=== PATIENT | male | born 1995 | race African-American/Black ===

== ENCOUNTER 2016-09-30 12:25 | Emergency (ER) | payer OTHER ==
[2016-09-30 12:30] VITALS: TEMP 98; BMI 21.4
--- NOTE | 2016-09-30 12:43 | PDOC ---
*Physical Exam - Vital Signs Last Vital Signs Temp Pulse Resp BP Pulse Ox 98.0 F 68 18 140/96 100 09/30/16 12:28 09/30/16 12:28 09/30/16 12:28 09/30/16 12:28 09/30/16 12:28 - Physical Exam Comments: 09/30/16 12:43 Pt seen by the Advanced Practice Provider under my direct supervision Pt interviewed and examined Ancillary studies reviewed I agree with plan as outlined by the Advanced Practice Provider ED Treatment Course - LABORATORY CBC & Chemistry Diagram: 09/30/16 14:10 09/30/16 14:10 *DC/Admit/Observation/Transfer Diagnosis at time of Disposition: Seizure - Discharge Dispostion Disposition: HOME Condition at time of disposition: Good - Referrals Referrals: Soco Reese MD [Staff Physician] - - Patient Instructions Printed Discharge Instructions: DI for Seizure Disorder -- Adult Additional Instructions: Please follow up with referred neurologist and avoid drug use. Eat well-balanced meals. Decrease stress level
[2016-09-30] MEDS ORDERED: SODIUM CHLORIDE 1,000 ML IV STA (13:11)
--- NOTE | 2016-09-30 13:26 | PDOC ---
History of Present Illness - General Chief Complaint: Seizure Stated Complaint: R/O Seizure Time Seen by Provider: 09/30/16 12:37 History Source: Patient, Other (friend) Exam Limitations: No Limitations - History of Present Illness Initial Comments: 09/30/16 13:00 20-year-old male presents the ED with status post witnessed generalized tremors and foaming at the mouth as per female friend. Patient states was feeling anxious at 17 soda vomiting followed a few minutes thereafter by generalized muscle fatigue followed by the symptoms mentioned above. Patient states has had what he believes a seizure in the past but states has never seen a neurologist nor has he had any imaging of his head. Patient states no recent head injury, recent change in weight, excessive drug use, alcohol use, recent illness, or fever. Timing/Duration: resolved prior to arrival Severity: moderate Associated Symptoms: reports: nausea/vomiting, seizure Past History - Past Medical History Allergies/Adverse Reactions: Allergies Allergy/AdvReac Type Severity Reaction Status Date / Time No Known Allergies Allergy Verified 09/30/16 12:28 Home Medications: Ambulatory Orders NK [No Known Home Medication] 09/30/16 Other medical history: possible seizure - Immunization History Immunization Up to Date: Yes - Psycho/Social/Smoking Cessation Hx Anxiety: No Suicidal Ideation: No Smoking History: Never smoked Have you smoked in the past 12 months: No Number of Cigarettes Smoked Daily: 2 Cigars Per Day: 0 Information on smoking cessation initiated: No Hx Alcohol Use: No Drug/Substance Use Hx: Yes (occ marijuana) Substance Use Type: None, Marijuana Patient Lives Alone: No Lives with/in: parents Review of Systems - Review of Systems Able to Perform ROS?: Yes Constitutional: No: Symptoms Reported HEENTM: No: Symptoms Reported Respiratory: No: Symptoms reported Cardiac (ROS): No: Symptoms Reported ABD/GI: Yes: Nausea, Vomiting Musculoskeletal: Yes: Muscle Pain (generalized) Integumentary: No: Symptoms Reported Neurological: Yes: Seizure Endocrine: No: Symptoms Reported *Physical Exam - Vital Signs Last Vital Signs Temp Pulse Resp BP Pulse Ox 98.0 F 68 18 140/96 100 09/30/16 12:28 09/30/16 12:28 09/30/16 12:28 09/30/16 12:28 09/30/16 12:28 - Physical Exam General Appearance: Yes: Nourished, Appropriately Dressed. No: Apparent Distress HEENT: positive: EOMI, TAMIKO (3 mm bilateral and equal). negative: Pharynx Normal (dry), Pale Conjunctivae Neck: positive: Supple Respiratory/Chest: positive: Lungs Clear, Normal Breath Sounds. negative: Respiratory Distress, Accessory Muscle Use Cardiovascular: positive: Regular Rhythm, Regular Rate. negative: Murmur Gastrointestinal/Abdominal: positive: Soft. negative: Tenderness Extremity: positive: Normal Capillary Refill. negative: Pedal Edema Integumentary: positive: Normal Color, Warm, Moist Neurologic: positive: Normal Mood/Affect, Motor Strength 5/5 (ambulatory). negative: Sensory Deficit Deep Tendon Reflexes: Knee (L): 2+, Knee (R): 2+ ED Treatment Course - LABORATORY CBC & Chemistry Diagram: 09/30/16 14:10 09/30/16 14:10 - RADIOLOGY Radiology Studies Ordered: Category Date Time Status HEAD CT WITHOUT CONTRAST [CT] Stat CT Scan 09/30/16 13:11 Ordered Medical Decision Making - Medical Decision Making 09/30/16 13:03 Patient with witnessed foaming at the mouth and generalized tremors it lasted approximately 1 minute but resolved by the time EMS arrived presents with no complaints . Patient's states had a similar episode in the past that was related to stress but it was over 10 years ago. Patient ordered for labs, urine and urine toxicology, head CT EKG, and BGM 09/30/16 15:28 Laboratory Tests 09/30/16 09/30/16 09/30/16 14:10 14:10 14:10 WBC 4.5 D Hgb 12.9 D Hct 40.0 Plt Count 128 L D Neutrophils % 61.7 Sodium 143 Potassium 4.3 Chloride 110 H Carbon Dioxide 28 Anion Gap 5 L BUN 15 D Creatinine 1.0 Creat Clearance w eGFR > 60 Random Glucose 92 Calcium 8.3 L Magnesium 2.1 AST 22 D ALT 32 Albumin 3.9 Urine Ketones Urine Nitrite Ur Leukocyte Esterase Opiates Screen Negative Barbiturate Screen Negative Phencyclidine Screen Negative Ur Amphetamines Screen Negative MDMA (Ecstasy) Screen Negative Benzodiazepines Screen Negative Cocaine Screen Negative U Marijuana (THC) Screen Positive 09/30/16 14:10 WBC Hgb Hct Plt Count Neutrophils % Sodium Potassium Chloride Carbon Dioxide Anion Gap BUN Creatinine Creat Clearance w eGFR Random Glucose Calcium Magnesium AST ALT Albumin Urine Ketones Negative Urine Nitrite Negative Ur Leukocyte Esterase Negative Opiates Screen Barbiturate Screen Phencyclidine Screen Ur Amphetamines Screen MDMA (Ecstasy) Screen Benzodiazepines Screen Cocaine Screen U Marijuana (THC) Screen 09/30/16 15:[address] shows no acute evidence of intracranial pathology including hemorrhage edema, midline shift mass effect or skull fracture. Patient will be discharged home to follow-up with neurology 09/30/16 15:29 *DC/Admit/Observation/Transfer Diagnosis at time of Disposition: Seizure - Discharge Dispostion Disposition: HOME Condition at time of disposition: Good - Referrals Referrals: Soco Reese MD [Staff Physician] - - Patient Instructions Printed Discharge Instructions: DI for Seizure Disorder -- Adult Additional Instructions: Please follow up with referred neurologist and avoid drug use. Eat well-balanced meals. Decrease stress level
[2016-09-30 14:23] LABS: BASOPHIL 0.6 % (0-2.0); EOSINOPHIL 1.9 % (0-4.5); MCH 27.6 pg (25.7-33.7); MCHC 32.2 g/dl (32.0-35.9); MEAN CELL VOLUME 85.9 fl (80-96); MEAN PLT VOLUME 9.6 fl (7.5-11.1); NEUTROPHILS 61.7 % (42.8-82.8); PLATELET COUNT 128 K/MM3 (134-434); RDW 15.5 % (11.9-15.9); WHITE BLOOD COUNT 4.5 K/mm3 (4.0-10.0)
[2016-09-30 14:25] LABS: URINE APPEARANCE CLEAR; URINE BILIRUBIN NEGATIVE (NEGATIVE); URINE BLOOD NEGATIVE (NEGATIVE); URINE COLOR STRAW; URINE GLUCOSE (UA) NEGATIVE (NEGATIVE); URINE KETONE NEGATIVE (NEGATIVE); URINE LEUK ESTERASE NEGATIVE (NEGATIVE); URINE NITRITE NEGATIVE (NEGATIVE); URINE PROTEIN NEGATIVE (NEGATIVE); URINE UROBILINOGEN NEGATIVE E.U./dl (0.2-1.0)
[2016-09-30 14:50] LABS: URINE MARIJUANA THC POSITIVE ng/ml (CUTOFF=50)
[2016-09-30 14:54] LABS: ALBUMIN 3.9 g/dl (3.4-5.0); ANION GAP 5 (8-16); BILIRUBIN,TOTAL 0.3 mg/dL (0.2-1.0); CALCIUM 8.3 mg/dL (8.5-10.1); CO2 28 mmol/L (21-32); COCKROFT - GAULT 107.79; GLUCOSE,RANDOM 92 mg/dL (74-106); MAGNESIUM 2.1 mg/dL (1.8-2.4); SGOT/AST 22 U/L (15-37); SGPT/ALT 32 U/L (12-78); TOT PROT 6.8 g/dl (6.4-8.2)
[2016-09-30 14:55] LABS: ALK PHOS 63 U/L (45-117)
[2016-09-30 15:43] VITALS: BP 136/79; PULSE 80
--- NOTE | 2016-09-30 16:20 | EKG ---
Test Reason : Blood Pressure : / mmHG Vent. Rate : 061 BPM Atrial Rate : 061 BPM P-R Int : 140 ms QRS Dur : 098 ms QT Int : 402 ms P-R-T Axes : 021 071 035 degrees QTc Int : 404 ms POOR DATA QUALITY, INTERPRETATION MAY BE ADVERSELY AFFECTED NORMAL SINUS RHYTHM WITH SINUS ARRHYTHMIA EARLY REPOLARIZATION NORMAL ECG WHEN COMPARED WITH ECG OF 12-MAY-2016 01:07, NO SIGNIFICANT CHANGE WAS FOUND Confirmed by KARLO ASCENCIO MD ([id number]) on 09/30/2016 4:20:35 PM Referred By: Confirmed By:KARLO ASCENCIO MD
== END 2016-09-30 15:50 | disposition home or self-care (01) ==
LOC: JER 12:25
PROC: 3E0337Z Introduction of Electrolytic and Water Balance Substance into Peripheral Vein, Percutaneous Approach (ICD-10-PCS; principal; 2016-09-30)
DX: G40.89 Other seizures (principal)
CPT/HCPCS: 36415; 70450-TC; 80053; 80307; 81003; 83735; 85025; 93005; 93010; 99282-25

== ENCOUNTER 2017-04-06 07:22 | Emergency (ER) | payer OTHER ==
[2017-04-06 07:29] VITALS: BMI 20.7
--- NOTE | 2017-04-06 08:06 | PDOC ---
History of Present Illness <Sarah Daniels - Last Filed: 04/06/17 08:01> - General History Source: Patient Exam Limitations: No Limitations - History of Present Illness Initial Comments: 04/06/17 08:24 21 year old male, with no significant past medical history, who presents to the emergency room with 3 days of nasal congestion and 1 day of left ear fullness and decreased hearing. He states that he noticed the decreased hearing in his left ear this morning when he woke up. He tried to pop his ear by moving his jaw around, and reports that it did pop but he still has decreased hearing. He also used a qtip and removed some wax in his left ear. He denies ear pain and tinnitus bilaterally. Denies ear discharge. Denies fever, chills, cough, sore throat. Denies headache. Denies chest pain, SOB. Allergies: NKDA <Carin Cummings - Last Filed: 04/06/17 08:27> - General Chief Complaint: Ear Problem Stated Complaint: HEARING PROBLEM Time Seen by Provider: 04/06/17 07:40 Past History - Immunization History Immunization Up to Date: Yes - Suicide/Smoking/Psychosocial Hx Smoking History: Current some day smoker Have you smoked in the past 12 months: No Number of Cigarettes Smoked Daily: 3 Cigars Per Day: 0 Information on smoking cessation initiated: No Hx Alcohol Use: No Drug/Substance Use Hx: No Substance Use Type: None, Marijuana <Sarah Daniels - Last Filed: 04/06/17 08:01> <Carin Cummings - Last Filed: 04/06/17 08:27> - Past Medical History Allergies/Adverse Reactions: Allergies Allergy/AdvReac Type Severity Reaction Status Date / Time No Known Allergies Allergy Verified 04/06/17 07:30 Home Medications: Ambulatory Orders Carbamide Peroxide 6.5% [Debrox -] 5 drop BID #1 bottle 04/06/17 Review of Systems - Review of Systems Able to Perform ROS?: Yes Comments:: 04/06/17 08:24 GENERAL/CONSTITUTIONAL: No fever or chills. No weakness. HEAD, EYES, EARS, NOSE AND THROAT: +nasal congestion. +left ear fullness and decreased hearing. No change in vision. No ear pain or discharge. No sore throat. GASTROINTESTINAL: No nausea, vomiting, diarrhea or constipation. GENITOURINARY: No dysuria, frequency, or change in urination. CARDIOVASCULAR: No chest pain or shortness of breath. RESPIRATORY: No cough, wheezing, or hemoptysis. MUSCULOSKELETAL: No joint or muscle swelling or pain. No neck or back pain. SKIN: No rash NEUROLOGIC: No headache, vertigo, loss of consciousness, or change in strength/ sensation. ENDOCRINE: No increased thirst. No abnormal weight change. HEMATOLOGIC/LYMPHATIC: No anemia, easy bleeding, or history of blood clots. ALLERGIC/IMMUNOLOGIC: No hives or skin allergy. <Carin Cummings - Last Filed: 04/06/17 08:27> *Physical Exam - Vital Signs Last Vital Signs Temp Pulse Resp BP Pulse Ox 97.4 F L 72 18 140/89 100 04/06/17 07:26 04/06/17 07:26 04/06/17 07:26 04/06/17 07:26 04/06/17 07:26 <Sarah Daniels - Last Filed: 04/06/17 08:01> - Vital Signs Last Vital Signs Temp Pulse Resp BP Pulse Ox 98 F 71 18 125/71 99 04/06/17 08:22 04/06/17 08:22 04/06/17 08:22 04/06/17 08:22 04/06/17 08:22 - Physical Exam Comments: 04/06/17 08:25 Constitutional: Awake, alert, oriented. No acute distress. Head: Normocephalic. Atraumatic Eyes: PERRL. EOMI. Conjunctivae are not pale. ENT: Congestion in nose. No sinus tenderness. Cerumen in the left ear, not impacted but unable to visualize the ear drum. Cerumen in the right ear with visualization of the eardrum. No bulging. No erythema.No mastoid tenderness. Mucous membranes are moist and intact. Posterior pharynx without exudates or erythema. Uvula midline. Neck: Supple. Full ROM. No lymphadenopathy. Cardiovascular: Regular rate. Regular rhythm. S1, S2 regular. Distal pulses are 2+ and symmetric. Pulmonary/Chest: No evidence of respiratory distress. Clear to auscultation bilaterally No wheezing, rales or rhonchi. Skin: Skin is warm and dry. No petechiae. No purpura. Neurological: Alert and oriented to person, place, and time. Cranial nerves II -XII are grossly intact. Normal speech. Strength is grossly symmetric. No sensory deficits. Psychiatric: Good eye contact. Normal interaction, affect and behavior. <Carin Cummings - Last Filed: 04/06/17 08:27> Medical Decision Making - Medical Decision Making 04/06/17 08:01 a/p: 21yo male with L ear fullness and decreased hearing -recent viral URI and nasal congestion causing eustasian tube dysfunction -also with cerumen in the canal -will give debrox gtts and ENT follow up -discussed all reasons to return to the ED and need for follow up with PMD and ENT. <Sarah Daniels - Last Filed: 04/06/17 08:01> *DC/Admit/Observation/Transfer - Discharge Dispostion Admit: No - Attestations Physician Attestion: 04/06/17 08:09 I, Dr. Sarah Daniels DO, attest that this document has been prepared under my direction and personally reviewed by me in its entirety. I further attest, that it accurately reflects all work, treatment, procedures and medical decision -making performed by me. <Sarah Daniels - Last Filed: 04/06/17 08:01> - Attestations Scribe Attestion: 04/06/17 08:27 Documentation prepared by RADHA Gibbs, acting as medical concierge for Sarah Daniels DO. <Carin Cummings - Last Filed: 04/06/17 08:27> Diagnosis at time of Disposition: Excessive cerumen in left ear canal - Discharge Dispostion Disposition: HOME - Prescriptions Prescriptions: Carbamide Peroxide 6.5% [Debrox -] 5 drop BID #1 bottle - Referrals Referrals: Estuardo Hoang MD [Staff Physician] - Moi Dugan MD [Staff Physician] - - Patient Instructions Printed Discharge Instructions: DI for Cerumen Impaction Additional Instructions: Please use the debrox drops as prescribed. Please return to the Ed with any further concerns. Please follow up with the PMD in 2-3 days. Please also follow up with the ENT physician. - Post Discharge Activity Forms/Work/School Notes: Back to Work
[2017-04-06 08:22] VITALS: BP 125/71; PULSE 71; TEMP 98
== END 2017-04-06 08:22 | disposition home or self-care (01) ==
LOC: JER 07:22
DX: H61.22 Impacted cerumen, left ear (principal)
CPT/HCPCS: 99281-25

== ENCOUNTER 2017-07-11 06:02 | Emergency (ER) | payer SELFPAY ==
[2017-07-11 06:36] VITALS: BP 139/78; PULSE 64; TEMP 98.4; BMI 20.2
--- NOTE | 2017-07-11 07:15 | PDOC ---
History of Present Illness - General Chief Complaint: Palpitations Stated Complaint: STOMACH PAIN/CONSTIPATION Time Seen by Provider: 07/11/17 07:02 History Source: Patient - History of Present Illness Initial Comments: 07/11/17 07:10 Patient is a 21 y.o. male with no PMH who presents c/o 2 day h/o intermittent, roving abdominal pain with associated constipation and nausea. Patient's last BM was two days previous, he normally has 1-2 BM daily Patient does note a single episode of bright red blood when wiping after bowel movement. Patient denies any vomiting, fevers, chills as well as dysuria/hematuria. 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 ROS is positive for intermittent palpitations. NKDA Surgical: none Social: denies cigarettes, denies alcohol, bi-weekly marijuana use PMD: None - will refer to IM clinic Past History - Past Medical History Allergies/Adverse Reactions: Allergies Allergy/AdvReac Type Severity Reaction Status Date / Time No Known Allergies Allergy Verified 04/06/17 07:30 Home Medications: Ambulatory Orders NK [No Known Home Medication] 07/11/17 - Immunization History Immunization Up to Date: Yes - Suicide/Smoking/Psychosocial Hx Smoking History: Former smoker Have you smoked in the past 12 months: No Number of Cigarettes Smoked Daily: 3 If you are a former smoker, when did you quit?: 04/2017 Cigars Per Day: 0 Information on smoking cessation initiated: No Hx Alcohol Use: No Drug/Substance Use Hx: Yes (Marijuana) Substance Use Type: None, Marijuana Review of Systems - Review of Systems Constitutional: No: Chills, Fever HEENTM: No: Recent change in vision Respiratory: No: Cough, Shortness of Breath Cardiac (ROS): Yes: Chest Pain ABD/GI: Yes: Constipated. No: Diarrhea, Nausea, Vomiting : No: Burning, Dysuria *Physical Exam - Vital Signs Last Vital Signs Temp Pulse Resp BP Pulse Ox 98.4 F 64 18 139/78 100 07/11/17 06:33 07/11/17 06:33 07/11/17 06:33 07/11/17 06:33 07/11/17 06:33 - Physical Exam General Appearance: Yes: Nourished, Appropriately Dressed, Disheveled, Thin HEENT: positive: EOMI, TAMIKO Neck: positive: Trachea midline, Supple Respiratory/Chest: positive: Lungs Clear, Normal Breath Sounds Cardiovascular: positive: S1, S2, Systolic Murmur (Grade I systolic murmur best appreciated in R 2nd intercostal space). negative: Edema, JVD Gastrointestinal/Abdominal: positive: Normal Bowel Sounds, Soft. negative: Tender, Pulsatile Mass, Protuberent, Distended, Guarding, Hernia, Mass Rectal Exam: positive: heme negative stool. negative: hemorrhoids Musculoskeletal: negative: CVA Tenderness (R), CVA Tenderness (L) Extremity: positive: Normal Capillary Refill, Normal Inspection Integumentary: positive: Normal Color, Dry, Warm Neurologic: positive: senior managing director II-XII NML intact, Fully Oriented, Alert ED Treatment Course - LABORATORY CBC & Chemistry Diagram: 07/11/17 07:45 07/11/17 07:45 Medical Decision Making - Medical Decision Making 07/11/17 07:14 Patient is a 21 y.o. male with no PMH who presents w/2 day h/o roving abdominal pain, constipation and some nausea. ROS is positive for palpitations. On PE patient's abdomen is soft/non-tender, possible low grade systolic murmur. Will send CBC, CMP, Lipase - low clinical suspicion for acute abdomen, possible viral gastritis. Will hydrate + Zofran/Miralax and assess for symptomatic improvement. EKG pending. Palpitations possibly 2/2 to hyperthyroidism vs. anxiety, Grade I systolic murmur on PE. Possible HOCM - EKG, CXR pending 07/11/17 07:48 Rectal exam shows no external hemorrhoids. No gross blood appreciated in FOBT testing. CBC shows no anemia; no leukocytosis making active infection less likely. Patient resting comfortably, states pain has resolved. During re-evaluation patient states he smokes marijuana daily -- possible etiology of constipation. 07/11/17 08:36 EKG non-ischemic, shows sinus bradycardia w/possible LVH (large QRS complexes V4 -V6), j point. CXR pending to evaluate for enlarged cardiac silhouette. 07/11/17 12:49 CXR negative for cardiomegaly. Will discharge patient home with return precautions and referral to cardiology and IM clinic. At time of discharge patient ambulatory, improved and tolerating PO intake. I discussed the physical exam findings, ancillary test results and final diagnoses with the patient. I answered all of the patient's questions. The patient was satisfied with the care received and felt comfortable with the discharge plan and treatment plan. The patient will return to the Emergency Department with any new, persistent or worsening symptoms. *DC/Admit/Observation/Transfer Diagnosis at time of Disposition: Abdominal pain, Palpitations - Discharge Dispostion Disposition: HOME Condition at time of disposition: Good Admit: No - Referrals Referrals: Moi Dugan MD [Staff Physician] - Efrain Bae MD [Staff Physician] - - Patient Instructions Additional Instructions: You were evaluated today for abdominal pain, constipation as well as your ongoing palpitations. All of your labs showed no concerning findings. Please make an appointment with Dr. Ritchie Prater (contact information included on the 1st page of your discharge instructions) to establish primary care. Please also make an appointment with Dr. Efrain Bae (contact information on the 1st page of your discharge instructions), a telemetry nurse to evaluate your palpitations. Return to the Emergency Department for any new/worsening/concerning symptoms. - Post Discharge Activity
[2017-07-11] MEDS ORDERED: ONDANSETRON 4 MG/2 ML VIAL IVPUSH ONE (07:40)
[2017-07-11] MEDS ORDERED: MAG HYDROX/AL HYDROX/SIMETH 30 ML UNIT-DOSE CUP PO ONE (07:42)
[2017-07-11] MEDS ORDERED: SODIUM CHLORIDE 0.9% 500 ML INFUS.BAG IV ONE (07:42)
[2017-07-11] MEDS ORDERED: POLYETHYLENE GLYCOL 3350 119 GM BTL PO ONE (07:44)
[2017-07-11 08:02] LABS: BASO % 0.7 % (0-2.0); EOS % 0.8 % (0-4.5); HEMATOCRIT 41.2 % (35.4-49); HEMOGLOBIN 13.2 GM/dL (11.7-16.9); LYMPH % 24.8 % (8-40); MCHC 32.2 g/dl (32.0-35.9); MEAN CELL VOLUME 83.9 fl (80-96); MONO % 7.8 % (3.8-10.2); NEUT % 65.9 % (42.8-82.8); PLATELET COUNT 231 K/MM3 (134-434); RDW 14.7 % (11.9-15.9); WHITE BLOOD COUNT 5.6 K/mm3 (4.0-10.0)
[2017-07-11] MEDS ORDERED: MAG HYDROX/AL HYDROX/SIMETH 30 ML UNIT-DOSE CUP ONE (08:02)
[2017-07-11] MEDS ORDERED: ONDANSETRON 4 MG/2 ML VIAL ONE (08:02)
[2017-07-11 08:12] LABS: URINE APPEARANCE CLEAR; URINE BILIRUBIN NEGATIVE (NEGATIVE); URINE BLOOD NEGATIVE (NEGATIVE); URINE COLOR YELLOW; URINE GLUCOSE (UA) NEGATIVE (NEGATIVE); URINE KETONE TRACE (NEGATIVE); URINE LEUK ESTERASE NEGATIVE (NEGATIVE); URINE NITRITE NEGATIVE (NEGATIVE); URINE PROTEIN NEGATIVE (NEGATIVE); URINE UROBILINOGEN 4.0 E.U/dl mg/dL (0.2-1.0)
[2017-07-11 08:27] LABS: ALBUMIN 4.1 g/dl (3.4-5.0); ALK PHOS 84 U/L (45-117); ANION GAP 7 (8-16); BILIRUBIN,TOTAL 0.3 mg/dL (0.2-1.0); BLOOD UREA NITROGEN 17 mg/dL (7-18); CALCIUM 8.4 mg/dL (8.5-10.1); CHLORIDE 104 mmol/L (98-107); CO2 28 mmol/L (21-32); CREATININE 1.1 mg/dL (0.7-1.3); GLUCOSE,RANDOM 87 mg/dL (74-106); LIPASE 158 U/L (73-393); SGPT/ALT 29 U/L (12-78); SODIUM 139 mmol/L (136-145); TOT PROT 7.6 g/dl (6.4-8.2)
[2017-07-11] MEDS ORDERED: MAG HYDROX/AL HYDROX/SIMETH 355 ML ORAL.SUSP PO ONE ×2 (08:35→08:36)
[2017-07-11 08:37] LABS: POTASSIUM 4.4 mmol/L (3.5-5.1); SGOT/AST 37 U/L (15-37)
--- NOTE | 2017-07-11 08:49 | PDOC ---
Attending Attestation - Resident Resident Name: Otilio Javierica - ED Attending Attestation I have performed the following: I have examined & evaluated the patient, The case was reviewed & discussed with the resident, I agree w/resident's findings & plan, Exceptions are as noted - HPI HPI: 07/11/17 08:46 21-year-old female with no severe past medical history, does not have primary care follow-up presents with 2 days of constipation with intermittent abdominal cramping, normal by mouth intake and no vomiting. On review of systems, also reported occasional palpitations described as an awareness of his heart beat, not necessarily a tachycardia. - Physicial Exam PE: 07/11/17 08:47 Vital signs normal Thin but well-appearing S1-S2, subtle one out of 6 systolic ejection murmur, no rub, no ectopy Lungs are clear Abdomen is soft/nondistended. No guarding or rebound - Medical Decision Making 07/11/17 08:48 Patient seen and evaluated with the resident. I agree with the overall evaluation, assessment, and management with the following summary of visit: 21-year-old male with 2 days of constipation, nonspecific complaints. Well- appearing, vital signs normal, subtle findings on examination but no major red flags. almost daily marijuana smoker, possible etiology for GI issues. Given lack of medical follow-up, we'll check basic labs, EKG, chest x-ray to assess overall heart size Feels better after medications, passing gas and pain has resolved Laxatives, PMD and cardiology follow-up Heart Score/ECG Review #1 General ECG Interpretation: Sinus Rhythm, Normal Rate, Normal Intervals (j-point , borderline LVH), No acute ischemic changes
[2017-07-11] MEDS ORDERED: FAMOTIDINE IV 20 MG/12 ML VIAL IVPUSH SCH (10:00)
--- NOTE | 2017-07-11 13:02 | EKG ---
Test Reason : Blood Pressure : / mmHG Vent. Rate : 049 BPM Atrial Rate : 049 BPM P-R Int : 136 ms QRS Dur : 106 ms QT Int : 432 ms P-R-T Axes : 052 070 033 degrees QTc Int : 390 ms SINUS BRADYCARDIA WITH SINUS ARRHYTHMIA MODERATE VOLTAGE CRITERIA FOR LVH, MAY BE NORMAL VARIANT NONSPECIFIC ST ABNORMALITY ABNORMAL ECG WHEN COMPARED WITH ECG OF 11-JUL-2017 06:49, T WAVE VARIATION Confirmed by OSORIO ANDRE, GURMEET ([id number]) on 07/11/2017 1:01:30 PM Referred By: Confirmed By:GURMEET AC MD
--- NOTE | 2017-07-14 11:01 | EKG ---
Test Reason : Blood Pressure : / mmHG Vent. Rate : 050 BPM Atrial Rate : 050 BPM P-R Int : 182 ms QRS Dur : 116 ms QT Int : 416 ms P-R-T Axes : 058 073 042 degrees QTc Int : 379 ms SINUS BRADYCARDIA LEFT VENTRICULAR HYPERTROPHY WITH QRS WIDENING NONSPECIFIC ST AND T WAVE ABNORMALITY ABNORMAL ECG WHEN COMPARED WITH ECG OF 30-SEP-2016 14:22, NONSPECIFIC T WAVE ABNORMALITY NOW EVIDENT IN ANTERIOR LEADS Confirmed by SONU ANDRE, KARLO ([id number]) on 07/14/2017 11:01:19 AM Referred By: Confirmed By:KARLO ASCENCIO MD
== END 2017-07-11 09:38 | disposition home or self-care (01) ==
LOC: JER 06:02
PROC: 3E033GC Introduction of Other Therapeutic Substance into Peripheral Vein, Percutaneous Approach (ICD-10-PCS; principal; 2017-07-11)
DX: R10.84 Generalized abdominal pain (principal); R00.2 Palpitations
CPT/HCPCS: 36415; 71046-TC; 80053; 81003; 82272; 83690; 84443; 85025; 93005; 93010; 99284-25

== ENCOUNTER 2018-12-01 07:07 | Emergency (ER) | payer OTHER ==
[2018-12-01 07:18] VITALS: BP 118/62; PULSE 67; TEMP 98; BMI 18.3
--- NOTE | 2018-12-01 07:40 | PDOC ---
History of Present Illness - General History Source: Patient Exam Limitations: No Limitations <Mindi Farr - Last Filed: 12/01/18 07:34> <Elizabeth Bejarano - Last Filed: 12/01/18 09:21> - General Chief Complaint: Ear Problem Stated Complaint: EAR AND MOUTH PROBLEM Time Seen by Provider: 12/01/18 07:19 Past History - Travel Traveled outside of the country in the last 30 days: No Close contact w/someone who was outside of country & ill: No - Past Medical History COPD: No - Immunization History Immunization Up to Date: Yes - Suicide/Smoking/Psychosocial Hx Smoking History: Unknown if ever smoked Have you smoked in the past 12 months: No Number of Cigarettes Smoked Daily: 3 If you are a former smoker, when did you quit?: 04/2017 Cigars Per Day: 0 Hx Alcohol Use: No Drug/Substance Use Hx: Yes (Marijuana) Substance Use Type: None, Marijuana <Mindi Farr - Last Filed: 12/01/18 07:34> <Elizabeth Bejarano - Last Filed: 12/01/18 09:21> - Past Medical History Allergies/Adverse Reactions: Allergies Allergy/AdvReac Type Severity Reaction Status Date / Time No Known Allergies Allergy Verified 12/01/18 07:14 Home Medications: Ambulatory Orders Mag Hydrox/Alh/Smc/Dpha/Lido [Magic Mouthwash *Sjr Formula* -] 5 ml MM Q6HPO #1 mouthwash 12/01/18 Review of Systems - Review of Systems Able to Perform ROS?: Yes Comments:: 12/01/18 07:40 CONSTITUTIONAL: Absent: fever, chills, diaphoresis, generalized weakness, malaise, loss of appetite HEENT: Present: decreased hearing, tongue pain Absent: rhinorrhea, nasal congestion, throat pain, throat swelling, difficulty swallowing, mouth swelling, ear pain, eye pain, visual Changes CARDIOVASCULAR: Absent: chest pain, loss of consciousness, palpitations, irregular heart rate, peripheral edema RESPIRATORY: Absent: cough, shortness of breath, dyspnea with exertion, orthopnea, wheezing, stridor, hemoptysis GASTROINTESTINAL: Absent: abdominal pain, abdominal distension, nausea, vomiting, diarrhea, constipation, melena, hematochezia GENITOURINARY: Absent: dysuria, frequency, urgency, hesitancy, hematuria, flank pain, genital pain MUSCULOSKELETAL: Absent: myalgia, arthralgia, joint swelling SKIN: Absent: rash, itching, pallor HEMATOLOGIC/IMMUNOLOGIC: Absent: easy bleeding, easy bruising, lymphadenopathy, frequent infections ENDOCRINE: Absent: unexplained weight gain, unexplained weight loss, heat intolerance, cold intolerance NEUROLOGIC: Absent: headache, focal weakness or paresthesias, dizziness, unsteady gait, seizure, mental status changes, bladder or bowel incontinence PSYCHIATRIC: Absent: anxiety, depression, suicidal or homicidal ideation, hallucinations. Is the patient limited Italian proficient: No <Mindi Farr - Last Filed: 12/01/18 07:34> *Physical Exam - Vital Signs Last Vital Signs Temp Pulse Resp BP Pulse Ox 98 F 67 14 118/62 100 12/01/18 07:14 12/01/18 07:14 12/01/18 07:14 12/01/18 07:14 12/01/18 07:14 - Physical Exam Comments: 12/01/18 07:43 GENERAL: The patient is awake, alert, and fully oriented, in no acute distress. HEAD: Normal with no signs of trauma. EYES: Pupils equal, round and reactive to light, extraocular movements intact, sclera anicteric, conjunctiva clear. HEENT: No nasal congestion or rhinorrhea. No sinus Tenderness. Mucous membranes are moist. No tonsillar erythema, exudate or edema. Uvula is midline. Unable to visualize the TM's d/t cerumen b/l. Tip of the tongue is erythematous without edema, no evidence of lesions. NECK: Neck is supple. No adenopathy. No meningismus. No stridor. EXTREMITIES: Normal range of motion, no edema. NEUROLOGICAL: Normal speech, normal gait. PSYCH: Normal mood, normal affect. SKIN: Warm, Dry, normal turgor, no rashes or lesions noted. <Mindi Farr - Last Filed: 12/01/18 07:34> - Vital Signs Last Vital Signs Temp Pulse Resp BP Pulse Ox 98 F 67 14 118/62 100 12/01/18 07:14 12/01/18 07:14 12/01/18 07:14 12/01/18 07:14 12/01/18 07:14 <Elizabeth Bejarano - Last Filed: 12/01/18 09:21> Medical Decision Making - Medical Decision Making 12/01/18 07:45 The patient is a 23-year-old male with no past medical history who presents to the ER today for decreased hearing out of the left ear as well as tongue pain. He states that he's had difficulty hearing for the past 4 days, and that he feels like he is hearing underwater. He also notes that his tongue has been bothering him. He states that he's had ongoing issue since May. He admits to increased saliva production as well as pain to the tip of the tongue. Denies fevers, chills, difficulty swallowing, dizziness, lightheadedness, nausea, vomiting and diarrhea. He has tried medication for oral thrush in the past with no relief of his symptoms. A/P: Cerumen impaction, tongue redness On exam the TMs bilaterally are unable to be visualized due to cerumen. We'll refer to ENT to have the patient's earwax removed. The tongue is erythematous at the tip with no obvious thrush, lesions. No edema to suggest infection. Unlikely a geographical tongue. No masses felt on palpation of the tongue No LAD We'll refer the patient dentistry for further evaluation at this time. Given the patient has some sensitivity with certain foods will prescribe Magic mouthwash for pain Vital signs are stable and patient is afebrile. Discharge home I discussed the physical exam findings, ancillary test results and final diagnoses with the patient. I answered all of the patient's questions. The patient was satisfied with the care received and felt comfortable with the discharge plan and treatment plan. The Patient agrees to follow up with the primary care physician/specialist within 24-72 hours. Return precautions were given. <Mindi Farr - Last Filed: 12/01/18 07:34> *DC/Admit/Observation/Transfer - Discharge Dispostion Decision to Admit order: No <Mindi Farr - Last Filed: 12/01/18 07:34> - Attestations Physician Attestion: I reviewed the case with the mid-level practitioner and agree with the mid- level practitioner's assessment, diagnosis and disposition. <Elizabeth Bejarano - Last Filed: 12/01/18 09:21> Diagnosis at time of Disposition: Excessive cerumen in left ear canal, Tongue irritation - Discharge Dispostion Disposition: HOME Condition at time of disposition: Stable - Prescriptions Prescriptions: Mag Hydrox/Alh/Smc/Dpha/Lido [Magic Mouthwash *Sjr Formula* -] 5 ml MM Q6HPO #1 mouthwash - Referrals Referrals: Arik Mullins MD [Primary Care Provider] - Arpan Mcrae MD [Staff Physician] - Marcos Ayoub MD [Staff Physician] - - Patient Instructions Printed Discharge Instructions: DI for Cerumen Impaction Additional Instructions: You had your tongue and ears evaluated today. You have excess cerumen in your ears. Please follow-up with ENT. 2 referrals to an ENT are attached. Your tongue needs evaluation from a dentist. 2 referral provided for you was well. You may use the Magic mouthwash to help with your pain every 6 hours. Follow-up with your primary care doctor Return to the ER for any new or worsening symptoms. [facility] Address: [place] [address] [facility]: [facility] Address: [address] [place] [id number] - Post Discharge Activity Forms/Work/School Notes: Back to Work
== END 2018-12-01 07:58 | disposition home or self-care (01) ==
LOC: JER 07:07
DX: H61.22 Impacted cerumen, left ear (principal); K14.9 Disease of tongue, unspecified
CPT/HCPCS: 99281-25

== ENCOUNTER 2019-05-29 17:48 | Emergency (ER) | payer SELFPAY ==
[2019-05-29] MEDS ORDERED: IBUPROFEN 600 MG TABLET (FP) PO ONE ×2 (17:53→19:12)
--- NOTE | 2019-05-29 17:53 | PDOC ---
Rapid Medical Evaluation Time Seen by Provider: 05/29/19 17:51 Medical Evaluation: Allergies Allergy/AdvReac Type Severity Reaction Status Date / Time No Known Allergies Allergy Verified 12/01/18 07:14 05/29/19 17:51 I have performed a brief in-person evaluation of this patient. The patient presents with a chief complaint of: R hand caught on door this am at work Pertinent physical exam findings: swelling to right hand I have ordered the following: x-ray, motrin The patient will proceed to the ED for further evaluation. Discharge Disposition - Diagnosis Hand injury - Referrals - Patient Instructions - Post Discharge Activity
[2019-05-29 17:55] VITALS: BMI 18.8
--- NOTE | 2019-05-29 19:09 | PDOC ---
History of Present Illness - General Chief Complaint: Injury Stated Complaint: R/HAND/INJURY Time Seen by Provider: 05/29/19 17:51 - History of Present Illness Initial Comments: 05/29/19 19:07 23-year-old male without comorbidities presents for evaluation of right hand pain after getting his hand caught in a door. It occurred earlier today. Past History - Past Medical History Allergies/Adverse Reactions: Allergies Allergy/AdvReac Type Severity Reaction Status Date / Time No Known Allergies Allergy Verified 12/01/18 07:14 Home Medications: Ambulatory Orders Mag Hydrox/Alh/Smc/Dpha/Lido [Magic Mouthwash *Sjr Formula* -] 5 ml MM Q6HPO #1 mouthwash 12/01/18 COPD: No - Immunization History Immunization Up to Date: Yes - Psycho Social/Smoking Cessation Hx Smoking History: Never smoked Have you smoked in the past 12 months: No Number of Cigarettes Smoked Daily: 3 If you are a former smoker, when did you quit?: 04/2017 Cigars Per Day: 0 Hx Alcohol Use: No Drug/Substance Use Hx: Yes (Marijuana) Substance Use Type: None, Marijuana Review of Systems - Review of Systems Musculoskeletal: Yes: Joint Pain *Physical Exam - Vital Signs Last Vital Signs Temp Pulse Resp BP Pulse Ox 98 F 99 H 18 146/94 99 05/29/19 17:51 05/29/19 17:51 05/29/19 17:51 05/29/19 17:51 05/29/19 17:51 - Physical Exam 05/29/19 19:08 Right hand skin color and temperature are normal there is tenderness and swelling about the dorsum of the hand in the area of the third metacarpal. No gross sensorimotor deficits neurovascular intact. 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 Medical Decision Making - Medical Decision Making 05/29/19 19:08 X-rays of the right hand show a obliquely oriented fracture minimally displaced best seen on oblique and lateral of the right third metacarpal. Volar splint was applied patient neurovascular intact post splint application. Discharge - Discharge Information Problems reviewed: Yes Clinical Impression/Diagnosis: Hand injury, Fractured hand Condition: Stable Disposition: HOME - Admission No - Follow up/Referral Referrals: Sai Faust MD [Staff Physician] - - Patient Discharge Instructions Additional Instructions: Please keep the splint in place until seen by orthopedic surgery. You must follow-up with orthopedic surgery in 2 to 3 days without fail for further evaluation and treatment options. Tylenol Motrin as directed for pain. Keep the hand elevated as much as possible. Return to the emergency room for further issues. - Post Discharge Activity
[2019-05-29 19:21] VITALS: BP 138/75; PULSE 85; TEMP 98.1
== END 2019-05-29 19:20 | disposition home or self-care (01) ==
LOC: JERFT 17:48
PROC: 2W3CX1Z Immobilization of Right Lower Arm using Splint (ICD-10-PCS; principal; 2019-05-29)
DX: S62.91XA Unspecified fracture of right hand, initial encounter for closed fracture (principal); W22.8XXA Striking against or struck by other objects, initial encounter; Y93.89 Activity, other specified; Y92.89 Other specified places as the place of occurrence of the external cause
CPT/HCPCS: 73130-TC-RT-FY; 99282-25

== ENCOUNTER 2021-05-26 12:52 | Emergency (ER) | payer OTHER ==
[2021-05-26 13:58] VITALS: BP 135/76; PULSE 73; TEMP 98.2; BMI 19.5
== END 2021-05-26 15:48 | disposition home or self-care (01) ==
LOC: JERFT 12:52
DX: S92.514A Nondisplaced fracture of proximal phalanx of right lesser toe(s), initial encounter for closed fracture (principal); Y04.8XXA Assault by other bodily force, initial encounter
CPT/HCPCS: 73630-TC-RT-FY; 99283-25